=== PATIENT | female | born 1990 | race American Indian/Alaskan Native ===

== ENCOUNTER 2018-04-19 09:04 | Emergency (ER) | payer MEDICAID, OTHER ==
[2018-04-19 09:11] VITALS: BP 110/81; PULSE 72; RESP 18; TEMP 98.5; O2SAT 96; BMI 25.0
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
== END 2018-04-19 09:32 | disposition home or self-care (01) ==
LOC: C.ER 09:04
DX: S13.4XXA Sprain of ligaments of cervical spine, initial encounter (principal); V03.10XA Pedestrian on foot injured in collision with car, pick-up truck or van in traffic accident, initial encounter; Y92.410 Unspecified street and highway as the place of occurrence of the external cause